=== PATIENT | female | born 1980 | race Caucasian/White ===

== ENCOUNTER 2017-11-30 09:59 | Outpatient (CLI) | payer BC, SELFPAY ==
--- NOTE | 2017-11-30 10:00 | PFT_ITS ---
INTERPRETATION SPIROMETRY: Spirometry shows no evidence of obstructive airways disease. No bronchodilator response. LUNG VOLUMES: Lung volumes show no evidence of restriction. DIFFUSION CAPACITY: Normal. AIRWAY RESISTANCE: Normal. IMPRESSION: Overall normal pulmonary function study. Clinical correlation recommended. HAND SIGNED COPY OF THIS NOTE IS SCANNED INTO THE ERM
[2017-11-30] MEDS: Albuterol HFA 18 GM 200 PUFF INH IH (10:55)
[2017-11-30] MEDS: Inhaler, Assist Device 1 EACH MC (10:55)
== END 2017-11-30 10:00 ==
PROVIDERS: PCP Family Medicine; Visit Provider Family Medicine
DX: J45.909 Unspecified asthma, uncomplicated (principal)
CPT/HCPCS: 94060; 94150; 94726; 94729

== ENCOUNTER 2018-05-06 09:34 | Emergency (ER) | payer BC, SELFPAY ==
[2018-05-06 09:37] VITALS: BP 134/77; PULSE 78; RESP 14; TEMP 36.7; O2SAT 99
--- NOTE | 2018-05-06 10:20 | ED.GENADUL_ITS ---
Discharge Plan Disposition Patient Disposition: HOME Condition: Good Discharge Details Chief Complaint: EyeProblem Clinical Impression: Acute allergic conjunctivitis Primary Care Provider: Miranda Meeks ED Provider: Eric Cabrera Home Meds and New Rx's Prescriptions: No Action lysine 500 MG tablet 500 mg PO DAILY RF: 0 Balziva (28) 0.4-35 mg-mcg tablet 1 tab PO DAILY Qty: 84 RF: 4 acetaminophen [Tylenol Extra Strength] 500 mg Tablet 1,000 mg PO Q6H PRNRF: 0 Ventolin HFA 200 PUFF HFA aerosol inhaler 2 puff Inhalation Q4H PRN PRN (Reason: Cough/wheeze) Qty: 1 RF: 0 Discharge Instructions Instructions: Conjunctivitis (ED) Additional Instructions: 1. Drink plenty fluids 2. Acetaminophen 1000 mg every 4 hours (up to 5 times a day) and/or ibuprofen 600 mg every 6 hours as needed for pain. 3. Erythromycin ophthalmic ointment 5 times a day for 3 days to affected eye. Return for worsening pain, visual changes, fever, chills, rash, or for any other concern. Discharge Data Discharge Date/Time-TO BE ENTERED AT DEPARTURE: 05/06/18 10:32 Medical Decision Making Presents after waking with her right eye shut with crusty discharge.. Has persistent mild eye discomfort but otherwise denies any significant visual changes, foreign body sensation, or recent trauma. Does not wear corrective lenses. Exam significant for minimal tarsal erythema with no significant discharge or scleral injection. Treated with erythromycin ophthalmic ointment I discharged home with a plan for continued topical erythromycin and outpatient follow-up as needed. Given usual and customary return instructions prior to discharge. HPI General Mode of arrival: ambulatory . Date/Time Provider Initiated Documentation: 05/06/18 10:15 . Limitations to Documentation: no limitations . Information obtained by: patient . HPI Narrative: 38-year-old woman with a past medical history which includes kidney stones and a fibroid uterus presents with right eye discomfort and discharge. Ms. Montoya notes being in her usual state of health until this morning when she woke with her right eye crusted shut from discharge and a persistent sensation of discomfort. Onset was associated with her having an eyelash in her eye yesterday. She otherwise denies any trauma or foreign body sensation. She does not were contacts. She denies other headache, visual changes, throat pain, hearing loss, or neck pain. Related Data Home Medications Medication Instructions Recorded Confirmed lysine 500 mg PO DAILY 08/15/14 05/06/18 Ventolin HFA 2 puff INHALATION Q4H PRN PRN #1 05/23/17 05/06/18 inh norethindrone-ethinyl estradiol 1 tab PO DAILY #84 tab 03/12/18 05/06/18 0.4 mg-35 mcg tablet acetaminophen [Tylenol Extra 1,000 mg PO Q6H PRN 05/06/18 05/06/18 Strength] Previous Rx's Medication Instructions Recorded Ventolin HFA 2 puff INHALATION Q4H PRN PRN #1 05/23/17 inh norethindrone-ethinyl estradiol 1 tab PO DAILY #84 tab 03/12/18 0.4 mg-35 mcg tablet Allergies Allergy/AdvReac Type Severity Reaction Status Date / Time No Known Drug Allergies Allergy Unverified 05/06/18 09:40 General Stated Complaint: EyeProblem JAY: 5 Review of Systems Review of Systems All systems reviewed & are unremarkable except as noted in HPI and below Eyes Reports irritation Comments: Discharge PFSH Medical History Contraception (Acute) Dermoid cyst of ovary (12/27/12) Fibroid uterus Kidney stone (12/27/12) Oral contraceptive use Surgical History Arthroplasty of knee section Family History Mother Kidney stone Parkinsons Social History Smoking/Tobacco Use Status: Never Exam Const General: cooperative, healthy appearing and no acute distress HENMT Head: normal to inspection General nose exam: external nose normal Face and sinus: normal facial exam Mouth: oral mucosae normal Throat: posterior oropharynx normal Eyes Periorbital: periorbital findings abnormal (Mild eyelid erythema superiorly and inferior) right Conjunctivae: conjunctivae normal Sclera: sclerae normal Cornea: corneas normal Pupils: PERRL EOM: EOM intact bilaterally Neck Neck: normal visual inspection, full ROM, no lymphadenopathy and lymphadenopathy Resp Effort & Inspection: normal respiratory effort Neuro General: alert and awake Cognition: normal cognition Speech: speech normal Extrem General: normal to inspection and full ROM Psych Appearance: grossly normal Mental Status: mental status grossly normal Speech and Movement: speech and movement normal Course Vital Signs Temperature 98.1 F 05/06/18 09:37 Pulse 78 05/06/18 09:37 Respiratory Rate 14 05/06/18 09:37 Blood Pressure 134/77 05/06/18 09:37 Pulse Oximetry 99 05/06/18 09:37 Temperature 98.1 F 05/06/18 09:37 Temperature Source Temporal Artery Scan 05/06/18 09:37 Pulse 78 05/06/18 09:37 Respiratory Rate 14 05/06/18 09:37 Respiratory Effort Non-Labored 05/06/18 09:39 Blood Pressure 134/77 05/06/18 09:37 Blood Pressure Position Sitting 05/06/18 09:37 Pulse Oximetry 99 05/06/18 09:37 Oxygen Delivery Method Room Air 05/06/18 09:37 Oxygen Flow Rate 0 05/06/18 09:37 Pain Level 1 05/06/18 09:37
[2018-05-06] MEDS: Erythromycin Ophth Oint 3.5 GM TUBE OD (10:31)
== END 2018-05-06 10:32 | disposition home or self-care (01) ==
LOC: ER 10:32
PROVIDERS: Emergency Provider Emergency Medicine; PCP Family Medicine
DX: H10.31 Unspecified acute conjunctivitis, right eye (principal)
CPT/HCPCS: 99283

== ENCOUNTER 2019-03-11 00:08 | Outpatient (CLI) | payer SELFPAY ==
--- NOTE | 2019-03-11 08:01 | DI.US_ITS ---
EXAM: US PELVIS TRANSVAGINAL CLINICAL HISTORY: interval surveillance of dermoid cyst, D27.9 TECHNIQUE: Ultrasound performed using standard protocol. Transabdominal and transvaginal exams wer e performed. COMPARISON: RENAL COLIC WO CONTRAST from 12/27/2012 PELVIS TRANSVAG from 09/20/2017 FINDINGS: The uterus is again noted to be enlarged with multiple fibroids. The endometrial stripe is not seen . A simple appearing cyst is again noted on the right which appears of slightly increased in size. A fatty echogenicity area is also again present on the right ovary and shows no significant change gi micah differences in measurement error. The left ovary is unremarkable. There is a question of a nono bstructing stone in the left kidney. The right kidney is unremarkable. There is no free fluid. IMPRESSION: Stable multiple uterine fibroids. No significant change in size of right ovarian dermoid. There has been mild interval increase in siz e of a simple cyst of the right ovary.
== END 2019-03-11 00:28 ==
PROVIDERS: PCP Family Medicine; Visit Provider Obstetrics & Gynecology Gynecology
DX: D25.9 Leiomyoma of uterus, unspecified (principal); D27.0 Benign neoplasm of right ovary; N83.291 Other ovarian cyst, right side
CPT/HCPCS: 76830; 76856

== ENCOUNTER 2021-02-01 09:53 | Outpatient (REF) | payer BC, SELFPAY ==
[2021-02-01 16:19] LABS: Calculated LDL 169 mg/dL (<100); Cholesterol 288 mg/dL (<200); HDL Cholesterol 61 mg/dL (40-60); Triglyceride 290 mg/dL (<150)
[2021-02-01 16:21] LABS: Hemoglobin A1C 5.6 % (<5.7)
[2021-02-02 10:57] LABS: Hepatitis C Ab w Rflx HCV PCR Negative (Negative)
[2021-02-02 11:06] LABS: HIV-1/2 Ag & Ab Screen Negative (Negative)
== END 2021-02-01 09:54 | disposition home or self-care (01) ==
LOC: NCHCN 09:53
PROVIDERS: PCP Family Medicine; Visit Provider Family Medicine
DX: Z13.220 Encounter for screening for lipoid disorders (principal); Z13.1 Encounter for screening for diabetes mellitus; Z11.4 Encounter for screening for human immunodeficiency virus [HIV]; Z11.59 Encounter for screening for other viral diseases; Z00.00 Encounter for general adult medical examination without abnormal findings
CPT/HCPCS: 80061; 86803; 87389; 83036

== ENCOUNTER 2021-07-14 16:14 | Outpatient (REF) | payer BC, SELFPAY ==
--- NOTE | 2021-07-14 15:30 | PAPFT_PTH ---
PATIENT: Breanna Montoya LOC: [facility] U#:[id number] AGE/SX: 41/F ROOM: RE07/14/[address]: Vianca Valdez NP : 1980 BED: DIS: 07/14/2021 SPEC #: [id number] RECD: 07/14/21 18:05 STATUS: CHLOE REHeather #: [id number] ELEANOR: 07/14/21 15:[address]: Vianca Valdez NP DEPT: [facility] Cytology RECD BY: Love Cabrera ENTERED: 07/14/21 18:06 SP TYPE: PAPFT OTHR DR: Miranda Meeks Tissues: 1 - CX/ENDOCX FOR PAP SMEARS Procedures: PAP THIN PREP/UVM Screening HPV DNA PROBE Comments: [id number]
== END 2021-07-14 16:15 | disposition home or self-care (01) ==
LOC: LBN 16:14
PROVIDERS: PCP Family Medicine; Visit Provider Nurse Practitioner Women's Health
DX: Z12.4 Encounter for screening for malignant neoplasm of cervix (principal); Z11.51 Encounter for screening for human papillomavirus (HPV)
CPT/HCPCS: 88142; 87624

== ENCOUNTER 2021-08-20 17:49 | Outpatient (REF) | payer BC, SELFPAY ==
[2021-08-22 14:37] LABS: COVID-19 RT-PCR UVMMC Result Negative (Negative)
== END 2021-08-20 17:50 | disposition home or self-care (01) ==
LOC: LBN 17:49
PROVIDERS: PCP Family Medicine; Visit Provider Physician Assistant Medical
DX: Z20.822 Contact with and (suspected) exposure to COVID-19 (principal); J02.9 Acute pharyngitis, unspecified
CPT/HCPCS: U0003

== ENCOUNTER 2023-09-21 16:09 | Outpatient (CLI) | payer BC, SELFPAY ==
[2023-09-21 17:17] LABS: Anion Gap 8.7 mmol/L (3-11); BUN 13 mg/dL (7-18); CO2 27.3 mmol/L (21.0-32.0); CREATININE 0.7 mg/dL (0.55-1.02); Calcium 8.6 mg/dL (8.5-10.1); Chloride 104 mmol/L (98-107); Estimated GFR 108.62 (mL/min/1.73m2); Glucose 97 mg/dL (74-106); Potassium 3.7 mmol/L (3.5-5.1); Sodium 140 mmol/L (136-145)
== END 2023-09-21 16:10 | disposition home or self-care (01) ==
LOC: LBO 16:10
PROVIDERS: PCP Family Medicine; Visit Provider Obstetrics & Gynecology
DX: R19.09 Other intra-abdominal and pelvic swelling, mass and lump (principal)
CPT/HCPCS: 36415; 80048

== ENCOUNTER 2024-10-14 10:30 | Outpatient (REF) | payer SELFPAY | END 2024-10-14 10:31 | disposition home or self-care (01) | LOC: LBN 10:30 | PROVIDERS: PCP Family Medicine; Visit Provider Nurse Practitioner Women's Health | DX: N76.0 Acute vaginitis (principal) | CPT/HCPCS: 87480; 87510; 87660 ==